=== PATIENT | female | born 1990 | race American Indian/Alaskan Native ===

== ENCOUNTER 2016-12-21 12:29 | Emergency (ER) | payer OTHER ==
[2016-12-21 12:29] VITALS: BMI 31.1
[2016-12-21 12:35] VITALS: RESP 18; TEMP 98.7
[2016-12-21] MEDS ORDERED: cefTRIAXone (Rocephin) 250 mg Inj IM STA (13:28)
[2016-12-21] MEDS ORDERED: Sodium Chloride 0.9% 1,000 ML IV STA (13:30)
--- NOTE | 2016-12-21 13:36 | ED PDOC ---
Arrival/HPI - General Historian: Patient - History of Present Illness Time/Duration: < week Symptom Onset: Gradual Symptom Course: Unchanged Quality: Aching Severity Level: 5 Context: Exertion <Ramesh Maciel - Last Filed: 12/21/16 13:51> <DeborahPreston L - Last Filed: 12/21/16 16:32> - General Chief Complaint: Abdominal Pain Time Seen by Provider: 12/21/16 12:43 - History of Present Illness Narrative History of Present Illness (Text): 12/21/16 13:31 26 F with PMHx of rt. ovarian cyst, fibroids, ileitis, and asthma presents to [facility] [place] ED with complaints of lower abdominal pain. Pt reports that the pain began 2 days ago and is localized to her lower abdomen. The pain is rated at a 5/10 and is exacerbated upon a change in position to a 7/10. 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 Pt admits to associated nausea without vomitting, has been recently constipated, and experienced light spotting for the past 2 days. Her LMP was 11/23/16, she reports her periods to be irregular. She denied fever, chills, sob, chest pains, v/d, or urinary symptoms. PMD: [place] CRUSHER MACHINE OPERATOR: Dr. Juan Diego Galo (Ramesh Maciel) Past Medical History - Past History Past History: Non-Contributing - Infectious Disease Hx of Infectious Diseases: None - Tetanus Immunization Tetanus Immunization: Unknown - Reproductive Menopause: No - Past Medical History Past Medical History: No Previous - Cardiac Hx Cardiac Disorders: No - Pulmonary Hx Respiratory Disorders: Yes Hx Asthma: Yes - Neurological Hx Neurological Disorder: Yes Hx Seizures: Yes - HEENT Hx HEENT Disorder: No - Renal Hx Renal Disorder: No - Endocrine/Metabolic Hx Endocrine Disorders: No - Hematological/Oncological Hx Blood Disorders: No - Integumentary Hx Dermatological Disorder: No - Musculoskeletal/Rheumatological Hx Musculoskeletal Disorders: No - Gastrointestinal Hx Gastrointestinal Disorders: No - Genitourinary/Gynecological Hx Genitourinary Disorders: No - Psychiatric Hx Psychophysiologic Disorder: No Hx Substance Use: No - Past Surgical History Past Surgical History: No Previous - Surgical History Hx Section: Yes - Anesthesia Hx Anesthesia: Yes Hx Anesthesia Reactions: No Hx Malignant Hyperthermia: No - Suicidal Assessment Feels Threatened In Home Enviroment: No <Ramesh Maciel - Last Filed: 12/21/16 13:51> Family/Social History Smoking Status: Current Some Days Smoker Hx Alcohol Use: No Hx Substance Use: No Hx Substance Use Treatment: No <Ramesh Maciel - Last Filed: 12/21/16 13:51> Family/Social History: No Known Family HX <Preston Cabrera - Last Filed: 12/21/16 16:32> Allergies/Home Meds <Ramesh Maciel - Last Filed: 12/21/16 13:51> <Preston Cabrera - Last Filed: 12/21/16 16:32> Allergies/Adverse Reactions: Allergies No Known Allergies Allergy (Verified 12/21/16 12:35) Home Medications: Home Meds Medication Instructions Recorded Confirmed No Known Home Med 12/21/16 12/21/16 Review of Systems - Review of Systems Constitutional: absent: Fatigue, Fevers Eyes: absent: Vision Changes, Photophobia ENT: absent: Hearing Changes, Sinus Congestion Respiratory: absent: SOB, Cough Cardiovascular: absent: Chest Pain, Palpitations Gastrointestinal: Abdominal Pain (llq/rlq), Constipation, Nausea. absent: Vomiting Genitourinary Female: absent: Dysuria, Frequency, Vaginal Discharge Skin: absent: Rash, Pruritis Neurological: absent: Headache, Dizziness Endocrine: absent: Diaphoresis, Polyuria Hemo/Lymphatic: absent: Adenopathy, Easy Bruising Psychiatric: absent: Anxiety, Depression <Ramesh Maciel - Last Filed: 12/21/16 13:51> Physical Exam Temperature: Afebrile Blood Pressure: Normal Pulse: Tachycardic Respiratory Rate: Normal Appearance: Positive for: Well-Appearing, Non-Toxic, Comfortable Pain Distress: Mild Mental Status: Positive for: Alert and Oriented X 3 - Systems Exam Head: Present: Atraumatic, Normocephalic Pupils: Present: PERRL Extroacular Muscles: Present: EOMI Conjunctiva: Present: Normal Mouth: Present: Moist Mucous Membranes Neck: Present: Normal Range of Motion Respiratory/Chest: Present: Clear to Auscultation, Good Air Exchange. No: Respiratory Distress, Accessory Muscle Use Cardiovascular: Present: Regular Rate and Rhythm, Normal S1, S2. No: Murmurs Abdomen: Present: Normal Bowel Sounds. No: Tenderness, Distention, Peritoneal Signs Genitourinary/Pelvic Exam: Present: Vaginal Discharge (brown), Adenexal Tenderness (left), Other (Nurse Venancio Silk Opener) Upper Extremity: Present: Normal Inspection. No: Cyanosis, Edema Lower Extremity: Present: Normal Inspection. No: Edema Neurological: Present: GCS=15, CN II-XII Intact, Speech Normal Skin: Present: Warm, Dry, Normal Color. No: Rashes Psychiatric: Present: Alert, Oriented x 3, Normal Insight, Normal Concentration <Ramesh Maciel - Last Filed: 12/21/16 13:51> Vital Signs Temp Pulse Resp BP Pulse Ox 12/21/16 16:15 94 H 18 138/69 99 12/21/16 12:30 98.7 F 110 H 18 142/73 98 Medical Decision Making <Ramesh Maciel - Last Filed: 12/21/16 13:51> - Lab Interpretations I have reviewed the lab results: Yes <Preston Cabrera - Last Filed: 12/21/16 16:32> ED Course and Treatment: 12/21/16 13:39 26 F with PMHx of rt ovarian cyst and fibroids presented to [facility] [place] ED with complaints of lower abdominal pain and nausea. - CBC - CMP - UA/ UCx/ Hcg - IVF - GC/Chlamydia - IM Rocephin - Azithromycin PO - Tansvaginal US - Reassess and Dispo (Ramesh Maciel) Patient seen and examined with resident. Came up with treatment and disposition plan with resident. The patient is a 26 year old female who presents to the emergency department for evaluation of lower abdominal pain. Additional HPI details as noted by the resident. On physical examination patient has vaginal discharge which is liquid brown. She has mild left adenexal tenderness with no guarding. Patient does not have any cervical motion tenderness. Female salon stylist (JUDSON Encarnacion) present during examination. Will order lab work and Urinalysis to rule out UTI. Will obtain Transvaginal ultrasound to rule out ovarian cyst vs. fibroids. Will obtain serology to rule out chlamydia/GC RNA. Will give patient Rocephin, Zithromax and IV fluid due to vaginal discharge findings. Patient given information on how to obtain result for chlamydia/GC RNA. 12/21/16 16:30 Patient is comfortable and has no pain. Abdomen is soft and not tender. I explained to her that she was . Her ultrasound report was explained to her. I discussed with Dr. Avila, Cornetist, who agrees to have her follow up in the ED in 2 days for a repeat BHCG and also to make sure she follows up with her Sweet Goods Machine Operator. Patient states she sees Dr. Esparza (spelling?) for gyncecology. Patient verbalized understanding of plan and will make sure to return for follow up. (Preston Cabrera) - Lab Interpretations Lab Results: 12/21/16 14:17 12/21/16 14:17 Lab Results 12/21/16 14:17: WBC 6.9 D, RBC 4.51, Hgb 13.5, Hct 37.8, MCV 83.8, MCH 29.9, MCHC 35.7, RDW 12.2, Plt Count 231, MPV 9.9, Gran % 62.8, Lymph % (Auto) 31.6, Rooks % (Auto) 4.9, Eos % (Auto) 0.6 L, Baso % (Auto) 0.1, Gran # 4.35, Lymph # 2.2, Rooks # 0.3, Eos # 0.0, Baso # 0.01, Sodium 136, Potassium 3.8, Chloride 101 , Carbon Dioxide 25, Anion Gap 14, BUN 16, Creatinine 0.8, Est GFR ( Amer ) > 60, Est GFR (Non-Af Amer) > 60, Random Glucose 88, Calcium 9.8, Total Bilirubin 0.5, AST 22, ALT 29, Alkaline Phosphatase 52, Total Protein 7.3, Albumin 4.2, Globulin 3.1, Albumin/Globulin Ratio 1.4 12/21/16 14:12: Beta HCG, Quant 319.11 H 12/21/16 13:30: Urine Color Yellow, Urine Appearance Clear, Urine pH 6.0, Ur Specific [place] <= 1.005, Urine Protein Negative, Urine Glucose (UA) Negative, Urine Ketones Negative, Urine Blood Small H, Urine Nitrate Negative, Urine Bilirubin Negative, Urine Urobilinogen 0.2, Ur Leukocyte Esterase Negative, Urine RBC 0 - 2, Urine WBC Negative, Ur Epithelial Cells 1 - 3, Urine HCG, Qual Positive - RAD Interpretation Radiology Orders: 12/21/16 13:25 OB TRANSVAGINAL [US] Stat - Medication Orders Current Medication Orders: Discontinued Medications Azithromycin (Zithromax) 1,000 mg PO STAT STA PRN Reason: Protocol Stop: 12/21/16 13:29 Last Admin: 12/21/16 14:06 Dose: 1,000 MG Ceftriaxone Sodium (Rocephin) 250 mg IM STAT STA PRN Reason: Protocol Stop: 12/21/16 13:29 Last Admin: 12/21/16 14:06 Dose: 250 MG IM Administration Charges Document 12/21/16 14:06 RR (Rec: 12/21/16 14:06 RR [id number]) Injection Site MAR Injection Site Right Gluteus Darvin Charges for Administration # of IM Administrations 1 Sodium Chloride (Sodium Chloride 0.9%) 1,000 mls @ 999 mls/hr IV .Q1H1M STA Stop: 12/21/16 14:30 Last Admin: 12/21/16 14:05 Dose: 999 MLS/HR eMAR Start Stop Document 12/21/16 14:05 RR (Rec: 12/21/16 14:06 RR [id number]) Intravenous Solution Start Date 12/21/16 Start Time 14:06 End Date 12/21/16 End time 15:06 Total Infusion Time 60 Lidocaine HCl (Lidocaine 1% (20ml)) Confirm Administered Dose 20 ml .ROUTE .STK- MED ONE Stop: 12/21/16 13:47 Last Admin: 12/21/16 14:06 Dose: 1 % Comments: given with corie cabrera aware <Ramesh Maciel - Last Filed: 12/21/16 13:51> - PA / TELEVISION MAINTENANCE WORKER / Resident Statement MD/DO has reviewed & agrees with the documentation as recorded. MD/DO has examined the patient and agrees with the treatment plan. - Scribe Statement The provider has reviewed the documentation as recorded by the Scribe <Preston Cabrera - Last Filed: 12/21/16 16:32> - Scribe Statement Fran Quintanilla Provider Scribe Attestation: All medical record entries made by the Scribe were at my direction and personally dictated by me. I have reviewed the chart and agree that the record accurately reflects my personal performance of the history, physical exam, medical decision making, and the department course for this patient. I have also personally directed, reviewed, and agree with the discharge instructions and disposition. (Preston Cabrera) Disposition/Present on Arrival - Present on Arrival Any Indicators Present on Arrival: No History of DVT/PE: No History of Uncontrolled Diabetes: No Urinary Catheter: No History of Decub. Ulcer: No History Surgical Site Infection Following: None <Ramesh Maciel - Last Filed: 12/21/16 13:51> - Present on Arrival Any Indicators Present on Arrival: No - Disposition Have Diagnosis and Disposition been Completed?: Yes Disposition Time: 16:32 Patient Plan: Discharge <Preston Cabrera - Last Filed: 12/21/16 16:32> - Disposition Diagnosis: Threatened Disposition: HOME/ ROUTINE Patient Problems: Current Active Problems Problem Status Diagnosed Threatened Acute Condition: IMPROVED Discharge Instructions (ExitCare): Threatened Miscarriage (ED) Additional Instructions: Ms Barrientos, thank you for letting us take care of you today. Your provider was Dr. Cabrera. You were treated for Threatened . The emergency medical care you received today was directed at your acute symptoms. If you were prescribed any medication, please fill it and take as directed. It may take several days for your symptoms to resolve. Return to the Emergency Department if your symptoms worsen, do not improve, or if you have any other problems. Please contact your doctor or call one of the physicians/clinics you have been referred to that are listed on the Patient Visit Information form that is included in your discharge packet. Bring any paperwork you were given at discharge with you along with any medications you are taking to your follow up visit. Our treatment cannot replace ongoing medical care by a primary care provider (PCP) outside of the emergency department. Thank you for allowing the [facility] team to be part of your care today. If you had an X-Ray or CT scan: A Radiologist will review the ED reading if any change in treatment is needed we will contact you. If you had a blood, urine, or wound culture: It will take several days for the results, if any change in treatment is needed we will contact you. If you had an STI test: It will take 48 hours for the results. Please call after 1 week if you have not heard back. Referrals: Vane Avila MD [Staff Provider] - Follow up with primary [facility] Terell Req, [Primary Care Provider] - Follow up with primary Forms: WORK NOTE
[2016-12-21] MEDS ORDERED: Lidocaine 1% Inj (20ml) ONE (13:46)
[2016-12-21 13:54] LABS: URINE APPEARANCE CLEAR (CLEAR); URINE BILIRUBIN NEGATIVE (NEGATIVE); URINE BLOOD SMALL (NEGATIVE); URINE COLOR YELLOW (YELLOW); URINE GLUCOSE (UA) NEGATIVE (NEGATIVE); URINE KETONE NEGATIVE (NEGATIVE); URINE LEUKOCYTE ESTERASE NEGATIVE Leu/uL (NEGATIVE); URINE PROTEIN NEGATIVE mg/dL (<30 mg/dL); URINE UROBILINOGEN 0.2 E.U./dL (<1 E.U./dL)
[2016-12-21 13:59] LABS: URINE RBC 0 - 2 /hpf (0-2); URINE WBC NEGATIVE /hpf (0-6)
[2016-12-21 14:18] LABS: ADD MANUAL DIFF? NO
[2016-12-21 14:23] LABS: BASO # 0.01 K/mm3 (0.0-2.0); BASO % 0.1 % (0.0-3.0); EOS % 0.6 % (1.5-5.0); GRAN # 4.35 (1.4-6.5); GRAN % 62.8 % (50.0-68.0); HEMATOCRIT 37.8 % (36.0-48.0); LYMPH # 2.2 (1.2-3.4); LYMPH % 31.6 % (22.0-35.0); MEAN CELL VOLUME 83.8 fL (80.0-105.0); MEAN CORPUSCULAR HEMOGLOBIN 29.9 pg (25.0-35.0); MEAN CORPUSCULAR HGB CONC 35.7 g/dl (31.0-37.0); MEAN PLATELET VOLUME 9.9 fl (7.0-11.0); MONO # 0.3 (0.1-0.6); MONO % 4.9 % (1.0-6.0); PLATELET COUNT 231 10^3/uL (120.0-450.0); RED CELL DISTRIBUTION WIDTH 12.2 % (11.5-14.5); WHITE BLOOD COUNT 6.9 10^3/ul (4.5-11.0)
[2016-12-21 14:30] LABS: ALB/GLOB RATIO 1.4 (1.1-1.8); ALKALINE PHOSPHATASE 52 U/L (38-133); ALT/SGPT 29 U/L (7-56); AST/SGOT 22 U/L (15-39); BILIRUBIN,TOTAL 0.5 mg/dL (0.2-1.3); BLOOD UREA NITROGEN 16 mg/dL (7-21); CALCIUM 9.8 mg/dL (8.4-10.5); CARBON DIOXIDE 25 mmol/L (21-33); CHLORIDE 101 mmol/L (98-107); GFR AFRICAN-AMERICAN > 60; GLUCOSE,RANDOM 88 mg/dL (70-110); POTASSIUM 3.8 mmol/L (3.6-5.0); SODIUM 136 mmol/L (132-148); TOTAL PROTEIN 7.3 g/dL (5.8-8.3)
[2016-12-21 16:16] VITALS: BP 138/69; PULSE 94; O2SAT 99
--- NOTE | 2016-12-21 16:18 | US ---
HISTORY: lower abd pain COMPARISON: None available. TECHNIQUE: Transabdominal and transvaginal FINDINGS: UTERUS: Measures 9.1 x 4.6 x 5.3 cm. Normal in size and appearance. No fibroid or other mass lesion seen. ENDOMETRIUM: Measures 2.6 mm in diameter. Irregular and heterogeneous. No intrauterine gestational sac identified. CERVIX: No cervical abnormality identified. RIGHT OVARY: Measures 4.1 x 2.2 x 3.7 cm. No solid mass. Normal flow. LEFT OVARY: Measures 2.8 x 1.6 x 2.5 cm. No solid mass. Normal flow. FREE FLUID: No significant free fluid noted. OTHER FINDINGS: None. IMPRESSION: No intrauterine gestation identified. Cannot rule out ectopic on the basis of this examination. Thick heterogeneous endometrium, up to 2.6 cm. Please correlate with serial beta HCG.
== END 2016-12-21 17:15 | disposition home or self-care (01) ==
LOC: ED 12:29
DX: O20.0 Threatened abortion (principal); Z3A.00 Weeks of gestation of pregnancy not specified
CPT/HCPCS: 76817; 80053; 81001; 84702; 84703; 85025; 87086; 87491; 87591; 96360; 96372; 99283; J0696; J7040

== ENCOUNTER 2018-12-27 23:55 | Emergency (ER) | payer OTHER ==
[2018-12-28 00:02] VITALS: BMI 33.3
[2018-12-28 00:06] VITALS: RESP 18
--- NOTE | 2018-12-28 00:26 | ED PDOC ---
Arrival/HPI <Cristina Jaimes - Last Filed: 12/28/18 02:43> - General Historian: Patient - History of Present Illness Narrative History of Present Illness (Text): Patient is a 28 year old female with past medical history of asthma and obesity presenting with chief complaint of abdominal pain. Pain is located mainly in right lower quadrant and described as a cramping sensation that first began two weeks prior. Patient also admits to diarrhea which occurs after meal intake. Diarrhea is occasionally green. Reports normal appetite. Admits to headache and nausea. Denies vomiting, dizziness, chest pain, shortness of breath, dysuria. Denies recent travel or sick contacts. Time/Duration: > week Symptom Onset: Sudden Symptom Course: Unchanged Quality: Cramping <Sirisha Patel - Last Filed: 12/28/18 02:52> - General Chief Complaint: Abdominal Pain Time Seen by Provider: 12/28/18 00:03 Past Medical History - Provider Review Nursing Documentation Reviewed: Yes - Travel History Have you recently traveled outside [place] w/in the past 3 mons?: No - Past History Past History: Non-Contributing - Infectious Disease Hx of Infectious Diseases: None - Tetanus Immunization Tetanus Immunization: Unknown - Past Medical History Past Medical History: No Previous - Cardiac Hx Cardiac Disorders: No - Pulmonary Hx Respiratory Disorders: Yes Hx Asthma: Yes - Neurological Hx Neurological Disorder: Yes Hx Seizures: Yes - HEENT Hx HEENT Disorder: No - Renal Hx Renal Disorder: No - Endocrine/Metabolic Hx Endocrine Disorders: No - Hematological/Oncological Hx Blood Disorders: No - Integumentary Hx Dermatological Disorder: No - Musculoskeletal/Rheumatological Hx Musculoskeletal Disorders: No - Gastrointestinal Hx Gastrointestinal Disorders: No - Genitourinary/Gynecological Hx Genitourinary Disorders: No - Psychiatric Hx Psychophysiologic Disorder: No Hx Substance Use: No - Past Surgical History Past Surgical History: No Previous - Surgical History Hx Section: Yes Hx Dilation and Curettage: Yes - Anesthesia Hx Anesthesia: Yes Hx Anesthesia Reactions: No Hx Malignant Hyperthermia: No - Suicidal Assessment Feels Threatened In Home Enviroment: No <Sirisha Patel - Last Filed: 12/28/18 02:52> Family/Social History - Physician Review Nursing Documentation Reviewed: Yes Family/Social History: No Known Family HX Smoking Status: Current Some Days Smoker Hx Alcohol Use: No Hx Substance Use: No Hx Substance Use Treatment: No <Sirisha Patel - Last Filed: 12/28/18 02:52> Allergies/Home Meds <Cristina Jaimes - Last Filed: 12/28/18 02:43> <Sirisha Patel - Last Filed: 12/28/18 02:52> Allergies/Adverse Reactions: Allergies No Known Allergies Allergy (Verified 12/28/18 00:03) Home Medications: Home Meds Medication Instructions Recorded Confirmed No Known Home Med 12/21/16 12/21/16 Review of Systems - Review of Systems Respiratory: Normal Cardiovascular: Normal Gastrointestinal: Abdominal Pain, Diarrhea Genitourinary Female: Normal <Sirisha Patel - Last Filed: 12/28/18 02:52> Physical Exam Vital Signs Temp Pulse Resp BP Pulse Ox 12/28/18 00:13 97.8 F 144/82 12/28/18 00:03 98 H 18 98 <Cristina Jaimes - Last Filed: 12/28/18 02:43> Vital Signs Reviewed: Yes Vital Signs Pulse Resp BP Pulse Ox 12/28/18 00:13 144/82 12/28/18 00:03 98 H 18 98 Temperature: Afebrile Blood Pressure: Normal Pulse: Regular Respiratory Rate: Normal Appearance: Positive for: Well-Appearing, Comfortable Pain Distress: None Mental Status: Positive for: Alert and Oriented X 3 - Systems Exam Head: Present: Atraumatic, Normocephalic Pupils: Present: PERRL Extroacular Muscles: Present: EOMI Conjunctiva: Present: Normal Mouth: Present: Moist Mucous Membranes Respiratory/Chest: Present: Clear to Auscultation, Good Air Exchange. No: Respiratory Distress, Accessory Muscle Use Cardiovascular: Present: Regular Rate and Rhythm, Normal S1, S2. No: Murmurs Abdomen: Present: Normal Bowel Sounds. No: Tenderness, Distention, Rebound, Guarding, McBurney's Point Tender, Mass/Organomegaly Upper Extremity: Present: Normal Inspection Lower Extremity: Present: Normal Inspection. No: Edema Neurological: Present: GCS=15, CN II-XII Intact, Speech Normal Skin: Present: Warm, Dry, Rashes, Normal Color Psychiatric: Present: Alert, Oriented x 3, Normal Insight, Normal Concentration <Sirisha Patel - Last Filed: 12/28/18 02:52> Medical Decision Making ED Course and Treatment: 12/28/18 00:43 Patient is a 28 year old female presenting to the emergency room complaining of right abdominal pain. In agreement with resident note, which includes further HPI details. Patient was seen and evaluated with resident, came up with plan and treatment together. 12/28/18 02:44 CT of the abdomen and pelvis with contrast Clinical statement: Pain. Technique: Multiple axial CT images were obtained from the base of the lungs through the floor of the pelvis utilizing 5 mm axial slices after administration of nonionic intravenous contrast. Coronal and sagittal reconstructions were also obtained. Comparison: None. Findings: Chest: The visualized lung bases are clear. Abdomen: The liver, spleen, pancreas, kidneys, gallbladder, and adrenal glands are unremarkable. The aorta is within normal limits. There is no evidence of abdominal lymphadenopathy or ascites. There is a small umbilical hernia. Pelvis: The bowel is unremarkable, with no obstructive or inflammatory changes. The appendix is normal. The urinary bladder is within normal limits. There is a large simple cyst in the posterior left adnexa, measuring 4.2 x 3.3 cm. The other pelvic structures appear grossly intact. There is no evidence of pelvic lymphadenopathy or ascites. Bones: There are no suspicious osseous abnormalities seen. Impression: 1. Large simple left ovarian cyst. 2. No obstructive or inflammatory bowel changes. 3. The kidneys and renal collecting systems are unremarkable. Electronically signed on Dec 28, 2018 2:37:26 AM EDT by: Mirna Martínez M.D., Certified by ABR, MSK, Neuroradiology - RAD Interpretation Radiology Orders: 12/28/18 00:21 ABD & PELVIS IV CONTRAST ONLY [CT] Stat - Medication Orders Current Medication Orders: Discontinued Medications Acetaminophen (Tylenol 325mg Tab) 650 mg PO ONCE ONE Stop: 12/28/18 00:33 Last Admin: 12/28/18 00:41 Dose: 650 mg <Cristina Jaimes - Last Filed: 12/28/18 02:43> ED Course and Treatment: Impression: 28 year old female with abdominal pain Differential Diagnosis included but are not limited to: gastroenteritis Plan: - CBC, CMP - Lipase - CT abd pelvis - Tylenol - Reassess and disposition Prior Visits: Notes and results from previous visits were reviewed. Progress Notes: Labs and imaging reviewed. Patient appears comfortable and is hemodynamically stable. Patient instructed to follow up with primary medical doctor. Patient expresses understanding and is in agreement with management plan. - RAD Interpretation Radiology Orders: 12/28/18 00:21 ABD & PELVIS IV CONTRAST ONLY [CT] Stat <Sirisha Patel - Last Filed: 12/28/18 02:52> - PA / DIRECTOR ENGINEERING / Resident Statement / has reviewed & agrees with the documentation as recorded. MD/DO has examined the patient and agrees with the treatment plan. - Scribe Statement The provider has reviewed the documentation as recorded by the [facility] Zaidi All medical record entries made by the Scribe were at my direction and personally dictated by me. I have reviewed the chart and agree that the record accurately reflects my personal performance of the history, physical exam, medical decision making, and the department course for this patient. I have also personally directed, reviewed, and agree with the discharge instructions and disposition. <Cristina Jaimes - Last Filed: 12/28/18 02:43> Disposition/Present on Arrival <Cristina Jaimes - Last Filed: 12/28/18 02:43> - Present on Arrival Any Indicators Present on Arrival: No History of DVT/PE: No History of Uncontrolled Diabetes: No Urinary Catheter: No History of Decub. Ulcer: No History Surgical Site Infection Following: None - Disposition Have Diagnosis and Disposition been Completed?: Yes Disposition Time: 02:42 <Sirisha Patel - Last Filed: 12/28/18 02:52> - Disposition Diagnosis: Ovarian cyst, Abdominal pain, Diarrhea Disposition: HOME/ ROUTINE Patient Problems: Current Active Problems Problem Status Onset Ovarian cyst Acute Condition: STABLE Additional Instructions: Please follow up with your primary medical doctor within 3-5 days. Resume your home medications as prescribed. Return to ED if symptoms worsen. Referrals: Bibi Shaw MD [Primary Care Provider] - Follow up with primary Forms: [employer] ([place]ish)
[2018-12-28 00:38] VITALS: TEMP 97.8
[2018-12-28 01:10] LABS: BASO # 0.02 K/mm3 (0.0-2.0); BASO % 0.4 % (0.0-3.0); EOS # 0.1 (0.0-0.7); EOS % 2.2 % (1.5-5.0); HEMOGLOBIN 12.9 g/dL (12.0-16.0); LYMPH # 2.4 (1.2-3.4); LYMPH % 43.2 % (22.0-35.0); MEAN CELL VOLUME 84.6 fl (80.0-105.0); MEAN CORPUSCULAR HEMOGLOBIN 28.3 pg (25.0-35.0); MEAN CORPUSCULAR HGB CONC 33.4 g/dl (31.0-37.0); MEAN PLATELET VOLUME 10.2 fl (7.0-11.0); MONO # 0.4 (0.1-0.6); MONO % 6.5 % (1.0-6.0); RBC 4.56 10^6/uL (3.5-6.1); RED CELL DISTRIBUTION WIDTH 12.7 % (11.5-14.5); WHITE BLOOD COUNT 5.5 10^3/uL (4.5-11.0)
[2018-12-28 01:14] LABS: ALB/GLOB RATIO 1.3 (1.1-1.8); ALBUMIN 3.9 g/dL (3.0-4.8); BLOOD UREA NITROGEN 12 mg/dL (7-21); CALCIUM 8.7 mg/dL (8.4-10.5); GFR NON-AFRICAN AMERICAN > 60; LIPASE 54 U/L (23-300)
[2018-12-28 01:17] LABS: ALT/SGPT 8 U/L (7-56); AST/SGOT 33 U/L (14-36)
[2018-12-28] MEDS ORDERED: Iohexol 350 MG/100 ML VIAL ONE (01:42)
[2018-12-28 02:59] VITALS: BP 135/82; PULSE 85; O2SAT 100
--- NOTE | 2018-12-28 11:22 | CT ---
Date of service: 12/28/2018 PROCEDURE: CT scan abdomen and pelvis HISTORY: Abdominal pain COMPARISON: Comparison made with prior study 12/03/2015. TECHNIQUE: Contiguous axial images of the abdomen and pelvis performed following intravenous injection of Omnipaque 350 contrast material. Additional 2D sagittal reformats generated. Radiation dose: Total exam DLP = 810.35 mGy-cm. This CT exam was performed using one or more of the following dose reduction techniques: Automated exposure control, adjustment of the mA and/or kV according to patient size, and/or use of iterative reconstruction technique. FINDINGS: LOWER THORAX: Heart size within range of normal. No significant pericardial effusion. There is a small hiatal hernia. Lung bases clear with no evidence of effusion or basilar pneumothorax. LIVER: Liver is mildly enlarged measuring approximately 19 cm in CC dimension. Mild diffuse fatty hepatic infiltration.. No obvious hepatic mass collection or calcification. Portal and splenic veins are opacified. GALLBLADDER AND BILE DUCTS: Gallbladder is contracted with thick-walled appearance. No obvious intraluminal gallbladder calculi. PANCREAS: Pancreas is unremarkable without masses collections or calcifications. SPLEEN: Unremarkable. No splenomegaly. ADRENALS: Unremarkable. KIDNEYS AND URETERS: Unremarkable. No stone or hydronephrosis. BLADDER: Urinary bladder incompletely distended which in part accounts for thick-walled appearance. Correlation with urinalysis recommended to exclude cystitis. REPRODUCTIVE: There is a large left-sided ovarian cyst. Smaller right adnexal cyst is suspected as well however note that the adnexal regions appears somewhat elongated and tubular in appearance. Possibility of bilateral hydrosalpinges or pyosalpinx should be excluded and therefore follow-up pelvic ultrasound recommended. APPENDIX: Normal-appearing appendix BOWEL: Evaluation of the bowel is somewhat limited due to the lack of oral contrast material. The stomach is partially distended with food debris liquid and air. Visualized loops of small bowel exhibit normal contour and caliber. No evidence of acute mechanical small bowel obstruction. Large bowel appears unremarkable. PERITONEUM: Unremarkable. No fluid collection. No free air. There is a small to medium sized fat umbilical hernia which contains mesenteric fat and nonobstructed bowel. LYMPH NODES: Unremarkable. No enlarged lymph nodes. VASCULATURE: Unremarkable. No aortic aneurysm. No aortic atherosclerotic calcification or mural plaque present. BONES: Minor multilevel degenerative spondylosis of the thoracic spine. OTHER FINDINGS: None. IMPRESSION: Mild hepatomegaly with mild fatty hepatic infiltration. Left ovarian cyst with questionable small right ovarian cyst. Note that the adnexa appears somewhat tubular and elongated in appearance which may be an anatomic variation however the possibility of a hydro salpinx or pyosalpinx not excluded. Follow-up pelvic ultrasound suggested. Gallbladder is contracted with thick-walled appearance. No obvious intraluminal gallbladder calculi. Urinary bladder also incompletely distended with slight thick-walled appearance. Correlation with urinalysis to exclude cystitis. Note this report was placed in PA review folder for follow up.
== END 2018-12-28 02:59 | disposition home or self-care (01) ==
LOC: ED 23:55
DX: N83.292 Other ovarian cyst, left side (principal); R19.7 Diarrhea, unspecified; R10.9 Unspecified abdominal pain
CPT/HCPCS: 74177; 80053; 81025; 83690; 85025; 99283; Q9967

== ENCOUNTER 2018-12-28 22:37 | Emergency (ER) | payer OTHER ==
[2018-12-28 22:38] VITALS: BMI 33.3
[2018-12-28 23:04] VITALS: RESP 18; TEMP 98.2
--- NOTE | 2018-12-28 23:06 | ED PDOC ---
Arrival/HPI - General Historian: Patient - History of Present Illness Narrative History of Present Illness (Text): Patient is a 28 year old female with past medical history of asthma and obesity presenting for further evaluation of abdominal pain. Patient had CT scan done yesterday which showed possible hydrosalpinx or pyosalpinx. Pain is located mainly in right lower quadrant and described as a cramping sensation that first began two weeks prior. Patient also admits to diarrhea which occurs after meal intake. Symptoms are overall improving. Denies vomiting, dizziness, chest pain, shortness of breath, dysuria. Denies recent travel or sick contacts. Time/Duration: > week Symptom Onset: Sudden Symptom Course: Unchanged Quality: Cramping <Sirisha Patel - Last Filed: 12/29/18 01:05> <Raymundo Ruiz - Last Filed: 12/29/18 19:17> - General Chief Complaint: Abdominal Pain Time Seen by Provider: 12/28/18 22:43 Past Medical History - Provider Review Nursing Documentation Reviewed: Yes - Past History Past History: Non-Contributing - Infectious Disease Hx of Infectious Diseases: None - Tetanus Immunization Tetanus Immunization: Unknown - Past Medical History Past Medical History: No Previous - Cardiac Hx Cardiac Disorders: No - Pulmonary Hx Respiratory Disorders: Yes Hx Asthma: Yes - Neurological Hx Neurological Disorder: Yes Hx Seizures: Yes - HEENT Hx HEENT Disorder: No - Renal Hx Renal Disorder: No - Endocrine/Metabolic Hx Endocrine Disorders: No - Hematological/Oncological Hx Blood Disorders: No - Integumentary Hx Dermatological Disorder: No - Musculoskeletal/Rheumatological Hx Musculoskeletal Disorders: No - Gastrointestinal Hx Gastrointestinal Disorders: No - Genitourinary/Gynecological Hx Genitourinary Disorders: No - Psychiatric Hx Psychophysiologic Disorder: No Hx Substance Use: No - Past Surgical History Past Surgical History: No Previous - Surgical History Hx Section: Yes Hx Dilation and Curettage: Yes - Anesthesia Hx Anesthesia: Yes Hx Anesthesia Reactions: No Hx Malignant Hyperthermia: No - Suicidal Assessment Feels Threatened In Home Enviroment: No <Sirisha Patel - Last Filed: 12/29/18 01:05> Family/Social History - Physician Review Nursing Documentation Reviewed: Yes Family/Social History: No Known Family HX Smoking Status: Current Some Days Smoker Hx Alcohol Use: No Hx Substance Use: No Hx Substance Use Treatment: No <Sirisha Patel - Last Filed: 12/29/18 01:05> Allergies/Home Meds <Sirisha Patel - Last Filed: 12/29/18 01:05> <Raymundo Ruiz - Last Filed: 12/29/18 19:17> Allergies/Adverse Reactions: Allergies No Known Allergies Allergy (Verified 12/28/18 00:03) Home Medications: Home Meds Medication Instructions Recorded Confirmed Albuterol 0.083% [Albuterol 3 ml IH Q4 PRN 12/28/18 12/28/18 Sulfate 3 Ml] Review of Systems - Physician Review All systems were reviewed & negative as marked: Yes - Review of Systems Respiratory: Normal Cardiovascular: Normal Gastrointestinal: Abdominal Pain, Diarrhea Genitourinary Female: Normal <Sirisha Patel - Last Filed: 12/29/18 01:05> Physical Exam Vital Signs Reviewed: Yes Temperature: Afebrile Blood Pressure: Normal Pulse: Regular Respiratory Rate: Normal Appearance: Positive for: Non-Toxic, Comfortable Pain Distress: None Mental Status: Positive for: Alert and Oriented X 3 - Systems Exam Head: Present: Atraumatic, Normocephalic Pupils: Present: PERRL Extroacular Muscles: Present: EOMI Conjunctiva: Present: Normal Respiratory/Chest: Present: Clear to Auscultation, Good Air Exchange. No: Respiratory Distress, Accessory Muscle Use Cardiovascular: Present: Regular Rate and Rhythm, Normal S1, S2. No: Tachycardic Abdomen: Present: Normal Bowel Sounds. No: Tenderness, Distention, Guarding Lower Extremity: Present: Normal Inspection. No: Edema Neurological: Present: GCS=15, CN II-XII Intact, Speech Normal Skin: Present: Warm, Dry, Normal Color Psychiatric: Present: Alert, Oriented x 3, Normal Insight, Normal Concentration <Sirisha Patel - Last Filed: 12/29/18 01:05> Vital Signs Temp Pulse Resp BP Pulse Ox 12/28/18 23:01 98.2 F 70 18 135/85 96 <Raymundo Ruiz - Last Filed: 12/29/18 19:17> Medical Decision Making ED Course and Treatment: Impression: 28 year old female with abdominal pain Plan: - Transvaginal ultrasound - Reassess and disposition Prior Visits: Notes and results from previous visits were reviewed. Progress Notes: Transvaginal ultrasound prelim results discussed with patient. Patient resting comfortably in bed and hemodynamically stable. Patient instructed to follow up with primary medical doctor. Patient expresses understanding and is in agreement with plan of management. Official CT read: FINDINGS: LOWER THORAX: Heart size within range of normal. No significant pericardial effusion. There is a small hiatal hernia. Lung bases clear with no evidence of effusion or basilar pneumothorax. LIVER: Liver is mildly enlarged measuring approximately 19 cm in CC dimension. Mild diffuse fatty hepatic infiltration.. No obvious hepatic mass collection or c alcification. Portal and splenic veins are opacified. GALLBLADDER AND BILE DUCTS: Gallbladder is contracted with thick-walled appearance. No obvious intraluminal gallbladder calculi. PANCREAS: Pancreas is unremarkable without masses collections or calcifications. SPLEEN: Unremarkable. No splenomegaly. ADRENALS: Unremarkable. KIDNEYS AND URETERS: Unremarkable. No stone or hydronephrosis. BLADDER: Urinary bladder incompletely distended which in part accounts for thick-walled appearance. Correlation with urinalysis recommended to exclude cystitis. REPRODUCTIVE: There is a large left-sided ovarian cyst. Smaller right adnexal cyst is suspected as well however note that the adnexal regions appears somewhat elongated and tubular in appearance. Possibility of bilateral hydrosalpinges or pyosalpinx should be excluded and therefore follow-up pelvic ultrasound recommended. APPENDIX: Normal-appearing appendix BOWEL: Evaluation of the bowel is somewhat limited due to the lack of oral contrast material. The stomach is partially distended with food debris liquid and air. Visualized loops of small bowel exhibit normal contour and caliber. No evidence of acute mechanical small bowel obstruction. Large bowel appears unremarkable. PERITONEUM: Unremarkable. No fluid collection. No free air. There is a small to medium sized fat umbilical hernia which contains mesenteric fat and nonobstructed bowel. LYMPH NODES: Unremarkable. No enlarged lymph nodes. VASCULATURE: Unremarkable. No aortic aneurysm. No aortic atherosclerotic calcification or mural plaque present. BONES: Minor multilevel degenerative spondylosis of the thoracic spine. OTHER FINDINGS: None. IMPRESSION: Mild hepatomegaly with mild fatty hepatic infiltration. Left ovarian cyst with questionable small right ovarian cyst. Note that the adnexa appears somewhat tubular and elongated in appearance which may be an anatomic variation however the possibility of a hydro salpinx or pyosalpinx not excluded. Follow-up pelvic ultrasound suggested. Gallbladder is contracted with thick-walled appearance. No obvious intraluminal gallbladder calculi. Urinary bladder also incompletely distended with slight thick-walled appearance. Correlation with urinalysis to exclude cystitis. 12/28/18 23:58 12/29/18 00:55 <Sirisha Patel Carol - Last Filed: 12/29/18 01:05> ED Course and Treatment: Impression: Pt seen and evaluated with medical appointment clerk. Aware and agree with HPI, clinical findings, plan, and management. Pt, whose past medical history includes asthma and obesity, who presents for abdominal pain. Pt recently had a CT performed which showed possible hydrosalpinx and was advised to come to the Emergency department for further evaluation. Plan: -- Transvaginal US -- Reassess and disposition Progress Notes: 12/29/18 00:57 Transvaginal US: Real-time transabdominal and transvaginal ultrasound images of the pelvis were obtained. An anteverted uterus is noted, measuring 9.4 x 4.6 x 6.0 cm. The uterus demonstrates normal echotexture and echogenicity. The endometrial stripe measures 2 mm and is within normal limits. The right ovary measures 3.9 x 2.6 x 2.7 cm. A cyst in the right ovary measures 1.2 x 0.9 x 1.4 cm. The left ovary measures 5.4 x 3.9 x 4.7 cm. A cyst in the left ovary measures 3.8 x 2.9 x 3.2 cm. No adnexal masses are seen. Color Doppler flow is seen within both ovaries. There is no evidence of free fluid. Impression: Unremarkable ultrasound examination of the uterus. Bilateral simple ovarian cysts. Electronically signed on Dec 29, 2018 12:36:22 AM EDT by: Mirna Martínez M.D., Certified by ABR, MSK, Neuroradiology - RAD Interpretation Radiology Orders: 12/28/18 23:09 TRANSVAGINAL [US] Stat Flight Hostess: Radiologist <Raymundo Ruiz - Last Filed: 12/29/18 19:17> - PA / [employer]IVET[employer]ABLE MACHINE / Resident Statement CATARINA has reviewed & agrees with the documentation as recorded. CATARINA has examined the patient and agrees with the treatment plan. <Raymundo Ruiz - Last Filed: 12/29/18 19:17> Disposition/Present on Arrival - Present on Arrival Any Indicators Present on Arrival: No History of DVT/PE: No History of Uncontrolled Diabetes: No Urinary Catheter: No History Surgical Site Infection Following: None - Disposition Have Diagnosis and Disposition been Completed?: Yes Disposition Time: 00:58 Patient Plan: Discharge <Sirisha Patel - Last Filed: 12/29/18 01:05> <Raymundo Ruiz - Last Filed: 12/29/18 19:17> - Disposition Diagnosis: Abdominal pain Disposition: HOME/ ROUTINE Condition: STABLE Discharge Instructions (ExitCare): Ovarian Cyst (DC) Additional Instructions: Please follow up with your primary medical doctor within 3-5 days. Resume any home medications as prescribed. Return to ED if symptoms worsen. [facility] - Follow up with primary Forms: [employer] (Sinhala)
[2018-12-29 01:26] VITALS: BP 127/76; PULSE 71; O2SAT 100
--- NOTE | 2018-12-29 16:12 | US ---
Date of service: 12/28/2018 HISTORY: abd pain, r/o pyosalpinx hydrosalpinx COMPARISON: None available. TECHNIQUE: Trans abdominal and transvaginal sonographic evaluation pelvis performed FINDINGS: UTERUS: Measures 9.4 x 4.6 x 6.0 cm. Normal in size and appearance. Anteverted. No fibroid or other mass lesion seen. ENDOMETRIUM: Measures 1.9 mm in diameter. Unremarkable. CERVIX: No cervical abnormality identified. Cervix measures approximately 3.7 cm RIGHT OVARY: Measures 3.9 x 2.6 x 2.7 cm. No solid mass. Normal flow. Small cyst right ovary measuring 1.2 x 0.9 x 1.4 cm LEFT OVARY: Measures 5.4 x 3.9 x 4.7 cm. No solid mass. Normal flow. There is a relatively large left ovarian cyst measuring 3.8 x 2.7 x 3.2 cm with what appears to represent layering debris (complex cyst).. FREE FLUID: No significant free fluid noted. OTHER FINDINGS: None. Complex left ovarian cyst as described. Small right ovarian cyst. IMPRESSION: Relatively large complex appearing left ovarian cyst. Small right ovarian cyst.
== END 2018-12-29 01:25 | disposition home or self-care (01) ==
LOC: ED 22:37
DX: R10.9 Unspecified abdominal pain (principal); E66.9 Obesity, unspecified